=== PATIENT | male | born 2000 | race Caucasian/White ===

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

== ENCOUNTER → 2018-03-30 | Outpatient (CLI) | payer BC, MEDICAID ==
[2018-03-30 09:32] LABS: ESTIMATED AVERAGE GLUCOSE 105 MG/DL (60-110); HEMOGLOBIN A1c 5.3 %
[2018-03-30 09:35] LABS: ALBUMIN 4.1 GM/DL (3.2-5.2); ALBUMIN/GLOBULIN RATIO 1.05 (1.00-1.93); ALKALINE PHOSPHATASE 113 U/L (45-117); ALT/SGPT 17 U/L (12-78); ANION GAP 6 MEQ/L (8-16); AST/SGOT 18 U/L (7-37); BILIRUBIN,TOTAL 0.4 MG/DL (0.2-1.0); BLOOD UREA NITROGEN 18 MG/DL (7-18); CALCIUM LEVEL 9.1 MG/DL (8.5-10.1); CARBON DIOXIDE LEVEL 30 MEQ/L (21-32); CHLORIDE LEVEL 104 MEQ/L (98-107); CHOLESTEROL LEVEL 143 MG/DL (< 200); CHOLESTEROL LEVEL 143 MG/DL (<200); CHOLESTEROL RISK RATIO 3.108 (<5); CREATININE FOR GFR 1.07 MG/DL (0.70-1.30); GLUCOSE, FASTING 90 MG/DL (70-100); HDL CHOLESTEROL 46 MG/DL (>40); LDL CHOLESTEROL 85.4 MG/DL (<100); NON-HDL-C 97 MG/DL; POTASSIUM SERUM 4.7 MEQ/L (3.5-5.1); SODIUM LEVEL 140 MEQ/L (136-145); TRIGLYCERIDES LEVEL 58 MG/DL (<150)
== END ==
LOC: M WUC 08:37
DX: F31.9 Bipolar disorder, unspecified (principal)
CPT/HCPCS: 82465

== ENCOUNTER 2021-08-28 10:24 | Emergency (ER) | payer OTHER, BC, MEDICAID ==
[~2021-08-28] VITALS: Ht 170.2 cm; Wt 79.8 kg
[~2021-08-28 10:24] MED LIST: LAMO200T54 PO; QUET100T2 PO
[2021-08-28] MEDS ORDERED: LIDOCAINE 1% MDV 20ML VIAL SC ONE (14:15)
[2021-08-28] MEDS ORDERED: BOOSTRIX/ADACEL VACCINE (DIPHTH/PERTUSS/ACELL/TETANUS) 0.5ML SYR IM ONE (14:40)
[2021-08-28] MEDS ORDERED: NEOSPORIN OINT 0.9 GM PKT TOP ONE (15:05)
[2021-08-28] MEDS ORDERED: DOXY-443 PO (15:18)
[2021-08-28 15:32] VITALS: BP 116/53
== END 2021-08-28 15:34 | disposition home or self-care (01) ==
LOC: M ED 10:24
DX: S61.412A Laceration without foreign body of left hand, initial encounter (principal); W26.8XXA Contact with other sharp object(s), not elsewhere classified, initial encounter; Y92.9 Unspecified place or not applicable; Y93.9 Activity, unspecified; Y99.0 Civilian activity done for income or pay; Z88.0 Allergy status to penicillin

== ENCOUNTER 2021-09-07 08:54 | Emergency (ER) | payer OTHER, BC ==
[~2021-09-07] VITALS: Ht 172.7 cm; Wt 71.1 kg
[~2021-09-07 08:54] MED LIST changes: +DOXY-443 PO
[2021-09-07 11:26] VITALS: BP 148/85
== END 2021-09-07 11:28 | disposition home or self-care (01) ==
LOC: M ED 08:54
DX: Z48.02 Encounter for removal of sutures (principal); Z88.0 Allergy status to penicillin